=== PATIENT | male | born 1980 | race African-American/Black ===

== ENCOUNTER 2017-04-12 06:12 | Emergency (ER) | payer SELFPAY ==
[~2017-04-12] VITALS: Ht 167.6 cm; Wt 81.6 kg
--- NOTE | 2017-04-12 06:48 | NUR ---
Patient given written and verbal discharge instructions. Patient verbalizes understanding of instructions. Patient is ambulatory with steady gait. Refuses offer of skilled nursing placement. Patient given list of available shelters in surrounding area.
== END 2017-04-12 06:49 | disposition home or self-care (01) ==
LOC: ER 06:18
DX: B37.89 Other sites of candidiasis (principal)
CPT/HCPCS: A4663

== ENCOUNTER 2019-05-31 19:34 | Emergency (ER) | payer SELFPAY ==
[~2019-05-31] VITALS: Ht 175.3 cm; Wt 108.9 kg
--- NOTE | 2019-05-31 19:45 | NUR ---
ERMD at bedside for MSE
[2019-05-31 19:59] VITALS: BP 125/79
== END 2019-05-31 20:00 | disposition home or self-care (01) ==
LOC: ER 19:35
DX: S30.860A Insect bite (nonvenomous) of lower back and pelvis, initial encounter (principal); Z59.0 Homelessness; W57.XXXA Bitten or stung by nonvenomous insect and other nonvenomous arthropods, initial encounter; Y93.89 Activity, other specified; Y92.89 Other specified places as the place of occurrence of the external cause; Y99.8 Other external cause status
CPT/HCPCS: A4663

== ENCOUNTER 2020-08-16 13:40 | Emergency (ER) | payer SELFPAY ==
[~2020-08-16] VITALS: Ht 175.3 cm; Wt 108.9 kg
--- NOTE | 2020-08-16 14:03 | NUR ---
Patient discharged to home in stable condition. Written and verbal after care instructions given. Patient verbalizes understanding of instructions. Stressed follow up or return to ER for worsening s/s.
== END 2020-08-16 14:04 | disposition home or self-care (01) ==
LOC: ER 13:41
DX: M25.562 Pain in left knee (principal); M25.561 Pain in right knee; Z59.0 Homelessness
CPT/HCPCS: A4663

== ENCOUNTER 2020-10-22 10:43 | Emergency (ER) | payer SELFPAY ==
[~2020-10-22] VITALS: Ht 165.1 cm; Wt 104.3 kg
--- NOTE | 2020-10-22 10:53 | NUR ---
Patient discharged to home in stable condition. Written and verbal after care instructions given. Patient verbalizes understanding of instructions. Stressed follow up or return to ER for worsening s/s.pt walks in steady gait. Addendum: 10/22/20 at 1058 by [email or web address] pt mentions that he has a home to go to.
== END 2020-10-22 10:59 | disposition home or self-care (01) ==
LOC: ER 10:43
DX: G89.21 Chronic pain due to trauma (principal); M25.562 Pain in left knee; T14.90XS Injury, unspecified, sequela; W19.XXXS Unspecified fall, sequela; Z59.0 Homelessness; F90.9 Attention-deficit hyperactivity disorder, unspecified type
CPT/HCPCS: A4663